=== PATIENT | female | born 1990 ===

== ENCOUNTER 2021-01-13 23:19 | Emergency (ER) | payer OTHER ==
[2021-01-14 19:18] LABS: SARS-CoV-2 PCR by NAA Not Detected (NotDetected)
== END 2021-01-14 00:47 | disposition home or self-care (01) ==
LOC: CSHERS 23:19
DX: J06.9 Acute upper respiratory infection, unspecified (principal); R07.89 Other chest pain; J45.909 Unspecified asthma, uncomplicated; Z20.822 Contact with and (suspected) exposure to COVID-19
CPT/HCPCS: 71045; 87635; 93005; U0003; U0005